=== PATIENT | male | born 1970 | race African-American/Black ===

== ENCOUNTER 2019-03-18 17:00 | Emergency (ER) | payer SELFPAY ==
[~2019-03-18] VITALS: Ht 177.8 cm; Wt 90.0 kg
[2019-03-18 17:03] VITALS: BP 145/85
== END 2019-03-18 17:45 | disposition left against medical advice (07) ==
LOC: ER 17:00
DX: Z53.21 Procedure and treatment not carried out due to patient leaving prior to being seen by health care provider (principal)